=== PATIENT | male | born 1955 | race Caucasian/White ===

== ENCOUNTER 2016-09-25 17:25 | Emergency (ER) | payer BC ==
[~2016-09-25] VITALS: Ht 180.3 cm; Wt 93.0 kg
[2016-09-25 17:52] VITALS: BP 169/91
[2016-09-25] MEDS ORDERED: DIPHTH,PERTUSS(ACELL),TET TOX 0.5 ML DISP.SYRIN. VAX IM ONE (19:45)
[2016-09-25] MEDS ORDERED: LIDOCAINE 1%/EPI 1:100,000 20 ML VIAL. INJ ONE (19:45)
--- NOTE | 2016-09-25 20:30 | PHYS DOC ---
Past Medical History Past Medical History: Hypertension, TIA Past Surgical History: Other Additional Past Surgical Histo: CAROTID ENDARECTOMY Additional Information: 1 PPD Alcohol Use: Rarely Drug Use: None Adult General Chief Complaint Chief Complaint: LACERATION/AVULSION HPI HPI Patient is a 60 year old male who presents with forehead laceration at 1600. Patient was playing hide and seek with his granddaughter and was running near the evenings of his home. He states I "forgot to duck." He hit his head on a 2 x 4 board. He denies loss of consciousness. He does not have any vision changes , dizziness, nausea, vomiting, or neck pain. He is unsure of his last tetanus immunization. His PCP is Dr. Palacios. Review of Systems Review of Systems Constitutional: Denies fever or chills. [] Eyes: Denies change in visual acuity, redness, or eye pain. [] Musculoskeletal: Denies back pain or joint pain. [] Integument: Denies rash or skin lesions. Reports forehead laceration. Neurologic: Denies headache, focal weakness or sensory changes. Denies loss of consciousness or dizziness. Current Medications Current Medications Current Medications Medications (Trade) Dose Ordered Sig/Grayson Start Time Stop Time Status Last Admin Dose Admin Diphtheria/ Tetanus/Acell Pertussis (Boostrix) 0.5 ml ONCE ONCE 09/25/16 19:45 09/25/16 19:46 DC 09/25/16 19:40 0.5 ML Lidocaine/ Epinephrine (Xylocaine 1%-Epi 1:100,000) 20 ml 1X ONCE 09/25/16 19:45 09/25/16 19:46 DC 09/25/16 19:41 20 ML Allergies Allergies Allergies Coded Allergies Type Severity Reaction Last Updated Verified naproxen Allergy Intermediate BLOOD IN STOOL 09/25/16 Yes morphine Adverse Reaction Intermediate NAUSEA 09/25/16 Yes Physical Exam Physical Exam Constitutional: Well developed, well nourished, no acute distress, non-toxic appearance. [] HENT: Normocephalic, atraumatic, oropharynx moist. [] Eyes: PERRLA, EOMI, conjunctiva normal, no discharge. [] Neck: Normal range of motion, no tenderness, supple, no stridor. [] Skin: Warm, dry, no erythema, no rash. There is a 7 cm laceration of the left forehead. Back: No midline tenderness, no CVA tenderness. [] Extremities: No tenderness, ROM intact, no edema. Distal pulses equal bilaterally. [] Neurologic: Alert and oriented X 3, normal motor function, normal sensory function, no focal deficits noted. CN II-XII grossly intact. Patient walks with a normal steady gait without assistance. Psychologic: Affect normal, judgement normal, mood normal. [] Current Patient Data Vital Signs Vital Signs Date Time Temp Pulse Resp B/P Pulse Ox O2 Delivery O2 Flow Rate FiO2 09/25/16 17:52 97 78 18 169/91 97 Room Air 97.0 EKG EKG [] Radiology/Procedures Radiology/Procedures [] Course & Med Decision Making Course & Med Decision Making Pertinent Labs and Imaging studies reviewed. (See chart for details) Patient presents with a 6 cm laceration to the forehead. The wound was anesthetized with 1% lidocaine with epinephrine. The wound was explored for foreign bodies and none were identified. The wound was cleaned using chlorhexidine scrub and copiously irrigated using normal saline. Wound edges were well approximated using 7 simple interrupted sutures using 5-0 nylon. The patient tolerated the procedure well and bleeding was controlled. Dragon Disclaimer Dragon Disclaimer This electronic medical record was generated, in whole or in part, using a voice recognition dictation system. Departure Departure Impression: Primary Impression: Forehead laceration Disposition: 01 HOME, SELF-CARE Condition: IMPROVED Referrals: UNKNOWN PCP NAME (PCP) Patient Instructions: Sutured Wound Care, [id number] Additional Instructions: Your wound was closed with nonabsorbable sutures. The sutures may get wet, however please do not submerge the wound in water. Please clean the wound with soap and water only. Do not use peroxide or rubbing alcohol. Please cover the wound with antibiotic ointment to 8 in the healing process. Please follow-up with your primary care doctor for suture removal in 10 days. Return to the emergency department if you have any new or concerning symptoms. Problem Qualifiers Primary Impression: Forehead laceration Encounter type: initial encounter Qualified Code: S01.81XA - Laceration without foreign body of other part of head, initial encounter CAMERON JOHNSON Sep 25, 2016 20:30
== END 2016-09-25 20:34 | disposition home or self-care (01) ==
LOC: ER 17:25
DX: S01.81XA Laceration without foreign body of other part of head, initial encounter (principal); I10 Essential (primary) hypertension; F17.200 Nicotine dependence, unspecified, uncomplicated; Z86.73 Personal history of transient ischemic attack (TIA), and cerebral infarction without residual deficits; Z98.890 Other specified postprocedural states; Z88.5 Allergy status to narcotic agent; Z88.6 Allergy status to analgesic agent; W51.XXXA Accidental striking against or bumped into by another person, initial encounter; Y93.89 Activity, other specified; Y99.8 Other external cause status; Y92.89 Other specified places as the place of occurrence of the external cause
CPT/HCPCS: 12014; 90471; 90715; 99283; J3490